=== PATIENT | female | born 1945 | race Caucasian/White ===

== ENCOUNTER → 2017-10-29 | Outpatient (CLI) | payer OTHER ==
[~2017-10-29] MED LIST: ATOR40TA71 PO; BUME1TAB12 PO; CARV12.511 PO; CHOL100046 PO; FERR325T22 PO; FOLI1TAB61 PO; GLIM4TAB3 PO; TIOT4MIS5 IH
== END ==
LOC: SHCH 15:08
PROVIDERS: ATTEND Internal Medicine Cardiovascular Disease
DX: I87.2 Venous insufficiency (chronic) (peripheral) (principal); K21.9 Gastro-esophageal reflux disease without esophagitis
CPT/HCPCS: 93970

== ENCOUNTER → 2017-11-30 | Outpatient (CLI) | payer OTHER | END | disposition home or self-care (01) | LOC: SHCH 09:18 | PROVIDERS: ATTEND Internal Medicine Cardiovascular Disease | DX: Z09 Encounter for follow-up examination after completed treatment for conditions other than malignant neoplasm (principal) | CPT/HCPCS: 93971 ==

== ENCOUNTER → 2018-07-20 | Outpatient (CLI) | payer OTHER | END | disposition home or self-care (01) | LOC: OIH 13:20 | PROVIDERS: ATTEND Family Medicine | DX: M25.472 Effusion, left ankle (principal); M25.475 Effusion, left foot; M85.872 Other specified disorders of bone density and structure, left ankle and foot | CPT/HCPCS: 73610; 73630 ==

== ENCOUNTER 2018-12-07 08:22 | Day surgery (SDC) | payer OTHER ==
[~2018-12-07] VITALS: Ht 172.7 cm; Wt 78.0 kg
[~2018-12-07 08:22] MED LIST changes: -FERR325T22 PO; +FERR325T29 PO; -FOLI1TAB61 PO; +FOLI1TAB85 PO; +PIOG15TA6 PO; +SODIUM CHLORIDE 0.9% 1000ML 1,000 ML IV ONE; +SULF1TAB3 PO; +TRAM50TA4 PO; +WARF6TAB23 PO
[2018-12-07 09:59] VITALS: BP 145/81
[2018-12-07] MEDS ORDERED: ENOX80DI8 SQ (10:23)
[2018-12-07 10:45] LABS: INR 1.06 (0.85-1.15); PROTHROMBIN TIME 11.1 SEC (9.6-11.6)
[2018-12-07] MEDS ORDERED: PROPOFOL 10 MG/ML 20ML VIAL IV ONE (11:49)
[2018-12-07 12:04] VITALS: BP 100/64
[2018-12-07 12:07] VITALS: BP 85/58
[2018-12-07 12:12] VITALS: BP 109/62
[2018-12-07 12:19] VITALS: BP 113/66
== END 2018-12-07 12:44 | disposition home or self-care (01) ==
LOC: ENDO 08:22 → DAH 08:22 → ENDO 12:44
PROVIDERS: ATTEND Internal Medicine
DX: K63.5 Polyp of colon (principal); D12.4 Benign neoplasm of descending colon; D12.3 Benign neoplasm of transverse colon; D12.5 Benign neoplasm of sigmoid colon; E66.9 Obesity, unspecified; E11.9 Type 2 diabetes mellitus without complications; I10 Essential (primary) hypertension; J44.9 Chronic obstructive pulmonary disease, unspecified; Z98.890 Other specified postprocedural states; Z96.659 Presence of unspecified artificial knee joint; K57.30 Diverticulosis of large intestine without perforation or abscess without bleeding; K64.0 First degree hemorrhoids; K21.9 Gastro-esophageal reflux disease without esophagitis; Z79.899 Other long term (current) drug therapy; Z86.010 Personal history of colon polyps; E78.2 Mixed hyperlipidemia; Z88.8 Allergy status to other drugs, medicaments and biological substances
CPT/HCPCS: 36415; 45385; 82948 ×2; 85610; 88305; 93005; A4606; J2704; J7030; 45380

== ENCOUNTER → 2019-06-06 | Outpatient (CLI) | payer OTHER ==
[~2019-06-06] MED LIST changes: -BUME1TAB12 PO; +BUME1TAB6 PO; -GLIM4TAB3 PO; +GLIM4TAB5 PO; -SODIUM CHLORIDE 0.9% 1000ML 1,000 ML IV ONE; -WARF6TAB23 PO
== END | disposition home or self-care (01) ==
LOC: OIH 08:08
PROVIDERS: ATTEND Family Medicine
DX: M16.12 Unilateral primary osteoarthritis, left hip (principal); M80.052D Age-related osteoporosis with current pathological fracture, left femur, subsequent encounter for fracture with routine healing; X58.XXXD Exposure to other specified factors, subsequent encounter
CPT/HCPCS: 73502; 73552

== ENCOUNTER 2020-06-07 07:20 | Day surgery (SDC) | payer OTHER ==
[~2020-06-07] VITALS: Ht 175.3 cm; Wt 79.8 kg
[2020-06-07] VITALS (8 sets, daily range): BP systolic 105–132; BP diastolic 60–70
[~2020-06-07 07:20] MED LIST changes: +DULA4.5P SQ; +GLIM4TAB36 PO; -GLIM4TAB5 PO; +SODIUM CHLORIDE 0.9% 1000ML 1,000 ML IV ONE; -TIOT4MIS5 IH
--- NOTE | 2020-06-07 08:25 | NUR ---
pt's blood sugar is 69, pt is asymptomatic, she states she is feeling fine. will notify evette adame
--- NOTE | 2020-06-07 08:28 | NUR ---
deep james pediatrics physician made aware of pt's blood sugar 69, pt is asymptomatic and he stated okay to proceed, no further orders at this time.
[2020-06-07 08:33] LABS: INR 1.08 (0.85-1.15); PROTHROMBIN TIME 11.6 SEC (9.6-11.6)
[2020-06-07] MEDS ORDERED: ALEN70TA69 PO (08:57)
[2020-06-07] MEDS ORDERED: WARF3TAB59 PO (08:57)
[2020-06-07] MEDS ORDERED: FOLI0.8T22 PO (08:57)
[2020-06-07] MEDS ORDERED: [UNRECOGNIZED DRUG - REMARK] SQ (08:57)
[2020-06-07] MEDS ORDERED: LEVO88TA7 PO (08:58)
[2020-06-07] MEDS ORDERED: PROPOFOL 10 MG/ML 20ML VIAL IV ONE (09:44)
--- NOTE | 2020-06-07 10:40 | NUR ---
DC PT DC HOME VIA WC,NO DISTRESS NOTED. PT DENIED ANY PAIN OR DISCOMFORTS. PT ACCOMPANIED BY SPOUSE
== END 2020-06-07 10:40 | disposition home or self-care (01) ==
LOC: ENDO 07:20 → DAH 07:20 → ENDO 10:40
PROVIDERS: ATTEND Internal Medicine Gastroenterology
DX: K59.00 Constipation, unspecified (principal); K63.5 Polyp of colon; K57.30 Diverticulosis of large intestine without perforation or abscess without bleeding; Z86.010 Personal history of colon polyps; I48.20 Chronic atrial fibrillation, unspecified; I10 Essential (primary) hypertension; E78.2 Mixed hyperlipidemia; Z79.01 Long term (current) use of anticoagulants; J44.9 Chronic obstructive pulmonary disease, unspecified; E66.9 Obesity, unspecified; E11.9 Type 2 diabetes mellitus without complications; K21.9 Gastro-esophageal reflux disease without esophagitis; Z88.1 Allergy status to other antibiotic agents; Z88.8 Allergy status to other drugs, medicaments and biological substances; Z79.4 Long term (current) use of insulin; Z79.899 Other long term (current) drug therapy; Z20.828 Contact with and (suspected) exposure to other viral communicable diseases
CPT/HCPCS: 36415 ×2; 45380; 82948 ×2; 85610; 93005; A4215; A4221; A4222; A4223; A4606; A4620; A4649; A4657 ×3; A4663; C9803; J2704; J7030; U0003

== ENCOUNTER → 2020-06-18 | Outpatient (CLI) | payer OTHER ==
[~2020-06-18] MED LIST changes: +ALEN70TA69 PO; +FOLI0.8T22 PO; +LEVO88TA7 PO; -SODIUM CHLORIDE 0.9% 1000ML 1,000 ML IV ONE; +WARF3TAB59 PO; +[UNRECOGNIZED DRUG - REMARK] SQ
== END | disposition home or self-care (01) ==
LOC: RAH 14:14
PROVIDERS: ATTEND Family Medicine
DX: Z12.31 Encounter for screening mammogram for malignant neoplasm of breast (principal)
CPT/HCPCS: 77067

== ENCOUNTER → 2020-07-10 | Outpatient (CLI) | payer OTHER | END | disposition home or self-care (01) | LOC: OIH 13:59 | PROVIDERS: ATTEND Family Medicine | DX: M51.36 Other intervertebral disc degeneration, lumbar region (principal); M54.5 Low back pain | CPT/HCPCS: 72100 ==

== ENCOUNTER 2021-09-02 09:28 | Emergency (ER) | payer OTHER ==
[~2021-09-02] VITALS: Ht 172.7 cm; Wt 74.8 kg
[~2021-09-02 09:28] MED LIST changes: -ALEN70TA69 PO; +ALEN70TA80 PO
[2021-09-02 10:27] LABS: BASOPHILS % (AUTO) 0.4 % (0.0-5.0); HEMATOCRIT 29.7 % (36-48); LYMPHOCYTES % (AUTO) 26.3 % (21.0-51.0); MEAN CORPUSCULAR HEMOGLOBIN 30.7 pg (27.0-33.0); MEAN CORPUSCULAR HGB CONC 31.6 g/dL (32.0-36.0); MEAN CORPUSCULAR VOLUME 97.1 fL (79-99); MONOCYTES % (AUTO) 8.5 % (3.0-13.0); NEUTROPHILS % (AUTO) 62.4 % (40.0-77.0); PLATELET COUNT (AUTO) 156 K/uL (130-400); RED BLOOD CELL COUNT(AUTO) 3.06 MIL/uL (4.00-5.50); RED CELL DISTRIBUTION WIDTH 13.3 % (11.0-15.5); WHITE BLOOD COUNT (AUTO) 4.6 K/uL (4.8-10.8)
[2021-09-02 10:47] LABS: BILIRUBIN,TOTAL 0.3 mg/dL (0.2-1.0); CREATININE 2.5 mg/dL (0.5-1.5); POTASSIUM 5.3 mmol/L (3.5-5.1); TOTAL PROTEIN, SERUM 7.3 g/dL (6.0-8.3)
[2021-09-02 14:57] LABS: APPEARANCE,URINE Clear (CLEAR); BILIRUBIN,URINE Negative (NEGATIVE); COLOR,URINE Yellow (YELLOW); GLUCOSE, URINE (UA) Negative (NEGATIVE); KETONES,URINE Negative (NEGATIVE); LEUKOCYTE ESTERASE ,URINE Small (NEGATIVE); NITRATE,URINE Negative (NEGATIVE); OCCULT BLOOD,URINE Negative (NEGATIVE); PH,URINE 5.5 (5.0-8.0); PROTEIN,URINE Negative (NEGATIVE); UROBILINOGEN,URINE 0.2 mg/dL (0.2-1.0)
[2021-09-02 15:12] LABS: BACTERIA,URINE Few /HPF (None Seen); RBC,URINE 0-1 /HPF (0-1)
[2021-09-02 15:13] LABS: SQUAMOUS EPITHELIAL CELL,UR Rare /HPF (0-2)
[2021-09-02] MEDS ORDERED: CARV12.580 PO (17:10)
[2021-09-02 17:11] VITALS: BP 138/80
== END 2021-09-02 17:30 | disposition home or self-care (01) ==
LOC: EDH 09:28
DX: R07.89 Other chest pain (principal); I25.10 Atherosclerotic heart disease of native coronary artery without angina pectoris; J44.9 Chronic obstructive pulmonary disease, unspecified; E11.9 Type 2 diabetes mellitus without complications; E78.00 Pure hypercholesterolemia, unspecified; I10 Essential (primary) hypertension; Z95.810 Presence of automatic (implantable) cardiac defibrillator; Z88.8 Allergy status to other drugs, medicaments and biological substances; Z88.1 Allergy status to other antibiotic agents; Z79.899 Other long term (current) drug therapy; Z79.01 Long term (current) use of anticoagulants; Z98.890 Other specified postprocedural states
CPT/HCPCS: 36415; 71045; 80053; 81001; 84484; 85025; 87077; 87088; 87186; 93005

== ENCOUNTER → 2021-09-30 | Outpatient (CLI) | payer OTHER ==
[~2021-09-30] MED LIST changes: +CARV12.580 PO; +REGADENOSON 0.4 MG/5 ML PF SYG IVP SCH
== END | disposition home or self-care (01) ==
LOC: SHCH 08:12
PROVIDERS: ATTEND Internal Medicine Cardiovascular Disease
DX: R94.39 Abnormal result of other cardiovascular function study (principal); I51.7 Cardiomegaly; Z95.0 Presence of cardiac pacemaker
CPT/HCPCS: 78452; 93017; 96374; A9500 ×2; J2785

== ENCOUNTER 2022-06-16 14:57 | Emergency (ER) | payer OTHER ==
[~2022-06-16 14:57] MED LIST changes: -REGADENOSON 0.4 MG/5 ML PF SYG IVP SCH
[2022-06-16 15:31] LABS: BASOPHILS % (AUTO) 0.6 % (0.0-5.0); EOSINOPHILS % (AUTO) 1.6 % (0.0-8.0); HEMATOCRIT 29.1 % (36-48); LYMPHOCYTES % (AUTO) 29.6 % (21.0-51.0); MEAN CORPUSCULAR HEMOGLOBIN 31.5 pg (27.0-33.0); MEAN CORPUSCULAR HGB CONC 32.3 g/dL (32.0-36.0); MEAN CORPUSCULAR VOLUME 97.7 fL (79-99); MONOCYTES % (AUTO) 9.5 % (3.0-13.0); NEUTROPHILS % (AUTO) 58.3 % (40.0-77.0); PLATELET COUNT (AUTO) 170 K/uL (130-400); RED BLOOD CELL COUNT(AUTO) 2.98 MIL/uL (4.00-5.50); RED CELL DISTRIBUTION WIDTH 13.9 % (11.0-15.5)
[2022-06-16 15:44] LABS: CREATININE 2.2 mg/dL (0.5-1.5)
[2022-06-16 15:48] LABS: ALBUMIN 3.7 g/dL (3.5-5.0); TOTAL PROTEIN, SERUM 6.9 g/dL (6.0-8.3)
[2022-06-16 16:39] VITALS: BP 154/47
[2022-06-16] MEDS ORDERED: 0.9%NACL 1000ML 1,000 ML IV ONE (17:30)
[2022-06-16] MEDS ORDERED: ACETAMINOPHEN 325 MG TAB PO ONE (17:30)
[2022-06-16] MEDS ORDERED: KETOROLAC 15MG/ML VIAL (15MG/ML) ONE (17:41)
[2022-06-16] MEDS ORDERED: ACET-66 PO (17:58)
[2022-06-16] MEDS ORDERED: KETOROLAC 15MG/ML VIAL (15MG/ML) IV ONE (18:00)
== END 2022-06-16 18:16 | disposition home or self-care (01) ==
LOC: EDH 14:57
DX: M94.0 Chondrocostal junction syndrome [Tietze] (principal); N64.4 Mastodynia; E86.0 Dehydration; I25.10 Atherosclerotic heart disease of native coronary artery without angina pectoris; E11.9 Type 2 diabetes mellitus without complications; E78.00 Pure hypercholesterolemia, unspecified; I10 Essential (primary) hypertension; E03.9 Hypothyroidism, unspecified; Z88.8 Allergy status to other drugs, medicaments and biological substances; Z88.1 Allergy status to other antibiotic agents; Z79.899 Other long term (current) drug therapy; Z79.01 Long term (current) use of anticoagulants; Z98.890 Other specified postprocedural states
CPT/HCPCS: 99285; 96374; 71045; 96361; 83735; 84484; 80053; 83880; 85025; 36415; 93005; J7030; J1885

== ENCOUNTER → 2023-01-26 | Outpatient (CLI) | payer OTHER ==
[~2023-01-26] MED LIST changes: +ACET-66 PO
== END | disposition home or self-care (01) ==
LOC: RAH 13:12
PROVIDERS: ATTEND Internal Medicine Cardiovascular Disease
DX: I67.82 Cerebral ischemia (principal); R51.9 Headache, unspecified
CPT/HCPCS: 70450

== ENCOUNTER → 2023-01-27 | Outpatient (CLI) | payer OTHER | END | disposition home or self-care (01) | LOC: SHCH 11:21 | PROVIDERS: ATTEND Internal Medicine Cardiovascular Disease | DX: I42.0 Dilated cardiomyopathy (principal); I08.1 Rheumatic disorders of both mitral and tricuspid valves; I11.9 Hypertensive heart disease without heart failure; E11.9 Type 2 diabetes mellitus without complications; E78.5 Hyperlipidemia, unspecified; Z95.2 Presence of prosthetic heart valve; Z95.810 Presence of automatic (implantable) cardiac defibrillator | CPT/HCPCS: 93306 ==

== ENCOUNTER 2023-09-28 05:58 | Day surgery (SDC) | payer OTHER ==
[2023-09-25 09:16] LABS: BASOPHILS # (AUTO) 0.02 K/uL (0.00-0.20); BASOPHILS % (AUTO) 0.5 % (0.0-5.0); EOSINOPHILS # (AUTO) 0.09 K/uL (0.00-0.70); HEMATOCRIT 31.9 % (36-48); IMMATURE GRANULOCYTE ABSOLUTE 0.01 K/uL (0-1); LYMPHOCYTES # (AUTO) 1.3 K/uL (1.0-4.8); LYMPHOCYTES % (AUTO) 28.3 % (21.0-51.0); MEAN CORPUSCULAR HEMOGLOBIN 31.3 pg (27.0-33.0); MEAN CORPUSCULAR HGB CONC 32.3 g/dL (32.0-36.0); MONOCYTES # (AUTO) 0.3 K/uL (0.1-1.0); MONOCYTES % (AUTO) 7.7 % (3.0-13.0); NEUTROPHILS # (AUTO) 2.7 K/uL (1.8-7.7); NEUTROPHILS % (AUTO) 61.3 % (40.0-77.0); PLATELET COUNT (AUTO) 163 K/uL (130-400); RED BLOOD CELL COUNT(AUTO) 3.29 MIL/uL (4.00-5.50); RED CELL DISTRIBUTION WIDTH 13.8 % (11.0-15.5); WHITE BLOOD COUNT (AUTO) 4.4 K/uL (4.8-10.8)
[2023-09-25 09:25] LABS: CREATININE 2.1 mg/dL (0.5-1.5); POTASSIUM 4.3 mmol/L (3.5-5.1)
[2023-09-25 09:43] LABS: INR 2.72 (0.85-1.15); PROTHROMBIN TIME 29.6 SEC (9.6-11.6)
[2023-09-25 09:45] VITALS: BP 116/64; PULSE 60; RESP 16
[~2023-09-28] VITALS: Ht 172.7 cm; Wt 74.5 kg
[2023-09-28] VITALS (9 sets, daily range): BP systolic 105–154; BP diastolic 47–70; PULSE 60–65; RESP 14–17
[~2023-09-28 05:58] MED LIST changes: -ACET-66 PO; +ALBU90AE2 IH; +BACL10TA PO; -CARV12.511 PO; -CARV12.580 PO; +CARV6.25 PO; +DULA1.5P SQ; -DULA4.5P SQ; -FOLI1TAB85 PO; +INSU3INS3 SQ; +LORA10TA7 PO; +MIRA50TA PO; -PIOG15TA6 PO; +WARF6TAB49 PO; +[UNRECOGNIZED DRUG - CODE] TP; -[UNRECOGNIZED DRUG - REMARK] SQ
[2023-09-28 06:36] LABS: INR 1.67 (0.85-1.15); PROTHROMBIN TIME 18.7 SEC (9.6-11.6)
[2023-09-28 06:37] LABS: PARTIAL THROMBOPLASTIN TIME 34.5 SEC (26.3-35.5)
[2023-09-28] MEDS ORDERED: LIDOCAINE HCL 1% MDV 50ML VIAL ONE (07:11)
[2023-09-28] MEDS ORDERED: CEFAZOLIN SODIUM 1 GM VIAL ONE (07:11)
[2023-09-28] MEDS ORDERED: MEPERIDINE-PF 25 MG/ML SYG ONE ×4 (07:12→08:22)
[2023-09-28] MEDS ORDERED: BUPIVACAINE/PF 0.25% 30ML VIAL IJ ONE (07:12)
[2023-09-28] MEDS: 0.9%NACL 1000ML 1,000 ML IV ONE (07:12)
[2023-09-28] MEDS ORDERED: MIDAZOLAM HCL 1 MG/ML 2ML VIAL ONE ×4 (07:12→08:22)
[2023-09-28] MEDS ORDERED: VANCOMYCIN 1G/250ML KIT 500 ML IV ONE (07:25)
[2023-09-28] MEDS ORDERED: BACITRACIN 1 EACH PACKET TP ONE (08:39)
[2023-09-28] MEDS ORDERED: DOXY100T2 PO (09:23)
[2023-09-28] MEDS ORDERED: ACETAMINOPHEN 500 MG TABLET PO PRN (09:30)
[2023-09-28] MEDS: ACETAMINOPHEN WITH CODEINE 1 TAB TAB PO PRN (10:59)
== END 2023-09-28 12:10 | disposition home or self-care (01) ==
LOC: DAH 05:58
PROVIDERS: ATTEND Internal Medicine Cardiovascular Disease
DX: Z45.02 Encounter for adjustment and management of automatic implantable cardiac defibrillator (principal); I44.2 Atrioventricular block, complete; I42.8 Other cardiomyopathies; E11.22 Type 2 diabetes mellitus with diabetic chronic kidney disease; N18.9 Chronic kidney disease, unspecified; I50.22 Chronic systolic (congestive) heart failure; I48.21 Permanent atrial fibrillation; E78.5 Hyperlipidemia, unspecified; Z90.710 Acquired absence of both cervix and uterus; Z98.890 Other specified postprocedural states; Z79.899 Other long term (current) drug therapy; Z82.49 Family history of ischemic heart disease and other diseases of the circulatory system; Z80.9 Family history of malignant neoplasm, unspecified; Z79.4 Long term (current) use of insulin
CPT/HCPCS: 80048; 85025; 85610 ×2; 85730 ×2; 36415 ×2; 93005; 33264; 82948 ×2; C1882; J7030; J0665; J2250 ×4; J3370; J2175 ×4; J3490; A4215; A6251; A4335; A4222; A4221; A4663; A4216; A6258; A4606; A4520; A4223 ×3; A4554; 99156; 99157; J0690

== ENCOUNTER → 2023-11-03 | Outpatient (CLI) | payer OTHER ==
[~2023-11-03] MED LIST changes: -SULF1TAB3 PO; -[UNRECOGNIZED DRUG - CODE] TP
[2023-11-03 16:33] LABS: CREATININE 2.1 mg/dL (0.5-1.0); POTASSIUM 4.4 mmol/L (3.5-5.1)
== END | disposition home or self-care (01) ==
LOC: LAB 14:00
PROVIDERS: ATTEND Internal Medicine Cardiovascular Disease
DX: I42.0 Dilated cardiomyopathy (principal)
CPT/HCPCS: 36415; 80048; 83735

== ENCOUNTER 2023-11-05 09:02 | Day surgery (SDC) | payer OTHER ==
[2023-10-30 10:42] LABS: BASOPHILS # (AUTO) 0.04 K/uL (0.00-0.20); BASOPHILS % (AUTO) 0.7 % (0.0-5.0); EOSINOPHILS # (AUTO) 0.12 K/uL (0.00-0.70); EOSINOPHILS % (AUTO) 2.1 % (0.0-8.0); HEMATOCRIT 35.4 % (36-48); IMMATURE GRANULOCYTE ABSOLUTE 0.02 K/uL (0-1); LYMPHOCYTES # (AUTO) 1.7 K/uL (1.0-4.8); LYMPHOCYTES % (AUTO) 30.3 % (21.0-51.0); MEAN CORPUSCULAR HEMOGLOBIN 31.5 pg (27.0-33.0); MEAN CORPUSCULAR HGB CONC 33.1 g/dL (32.0-36.0); MEAN CORPUSCULAR VOLUME 95.4 fL (79-99); MONOCYTES # (AUTO) 0.4 K/uL (0.1-1.0); MONOCYTES % (AUTO) 6.6 % (3.0-13.0); NEUTROPHILS # (AUTO) 3.4 K/uL (1.8-7.7); PLATELET COUNT (AUTO) 181 K/uL (130-400); RED BLOOD CELL COUNT(AUTO) 3.71 MIL/uL (4.00-5.50); RED CELL DISTRIBUTION WIDTH 14.2 % (11.0-15.5); WHITE BLOOD COUNT (AUTO) 5.7 K/uL (4.8-10.8)
[2023-10-30 10:48] LABS: APPEARANCE,URINE CLOUDY (CLEAR); BILIRUBIN,URINE NEGATIVE (NEGATIVE); COLOR,URINE COLORLESS (YELLOW); GLUCOSE, URINE (UA) NEGATIVE (NEGATIVE); KETONES,URINE NEGATIVE (NEGATIVE); LEUKOCYTE ESTERASE ,URINE 75 Leu/uL (NEGATIVE); NITRATE,URINE NEGATIVE (NEGATIVE); OCCULT BLOOD,URINE NEGATIVE (NEGATIVE); PROTEIN,URINE NEGATIVE (NEGATIVE); UROBILINOGEN,URINE 0.2 mg/dL (0.2-1.0)
[2023-10-30 10:49] VITALS: BP 169/71; PULSE 58; RESP 17
[2023-10-30 10:51] LABS: CREATININE 2.1 mg/dL (0.5-1.0); POTASSIUM 4.7 mmol/L (3.5-5.1)
[2023-10-30 10:53] LABS: INR 1.75 (0.85-1.15); PROTHROMBIN TIME 19.8 SEC (9.6-11.6)
[2023-10-30 10:54] LABS: PARTIAL THROMBOPLASTIN TIME 33.6 SEC (26.3-35.5)
[2023-10-30 10:54] LABS: ADD UA MICROSCOPIC YES
[2023-10-30 11:06] LABS: BACTERIA,URINE FEW /HPF (None Seen); MUCUS,URINE RARE LPF (None Seen); SQUAMOUS EPITHELIAL CELL,UR RARE /HPF (0-2)
[2023-11-05] VITALS (17 sets, daily range): BP systolic 118–165; BP diastolic 43–89; PULSE 59–96; RESP 12–16
[~2023-11-05] VITALS: Ht 172.7 cm; Wt 72.8 kg
[2023-11-05] MEDS: BOTULINUM TOXIN TYPE A 100 UNITS/VIAL INJ ONE ×2 (09:57→12:09)
[2023-11-05] MEDS ORDERED: BOTULINUM TOXIN TYPE A 100 UNITS/VIAL INJ SCH (10:00)
[2023-11-05 10:05] LABS: INR 0.98 (0.85-1.15); PROTHROMBIN TIME 11.6 SEC (9.6-11.6)
[2023-11-05 10:07] LABS: PARTIAL THROMBOPLASTIN TIME 22.8 SEC (26.3-35.5)
[2023-11-05] MEDS: LEVOFLOXACIN 500 MG/D5W 100 ML 100 ML ONE (11:35)
[2023-11-05] MEDS: 0.9%NACL 1000ML 1,000 ML IV ONE (11:35)
[2023-11-05] MEDS ORDERED: PROPOFOL 10 MG/ML 20ML VIAL IV ONE (11:43)
[2023-11-05] MEDS ORDERED: MIDAZOLAM HCL 1 MG/ML 2ML VIAL ONE (11:43)
[2023-11-05] MEDS ORDERED: FENTANYL CITRATE PF 50 MCG/1 ML 2ML VIAL ONE (11:43)
[2023-11-05] MEDS ORDERED: LIDOCAINE PF 100MG/5ML (2%) SYRINGE 5ML ONE (11:43)
== END 2023-11-05 14:10 | disposition home or self-care (01) ==
LOC: DAH 09:02
PROVIDERS: ATTEND Urology
DX: N39.46 Mixed incontinence (principal); N32.81 Overactive bladder; I25.10 Atherosclerotic heart disease of native coronary artery without angina pectoris; E11.22 Type 2 diabetes mellitus with diabetic chronic kidney disease; I13.0 Hypertensive heart and chronic kidney disease with heart failure and stage 1 through stage 4 chronic kidney disease, or unspecified chronic kidney disease; I50.9 Heart failure, unspecified; N18.9 Chronic kidney disease, unspecified; E66.01 Morbid (severe) obesity due to excess calories; M19.90 Unspecified osteoarthritis, unspecified site; Z79.01 Long term (current) use of anticoagulants; Z90.710 Acquired absence of both cervix and uterus; Z98.890 Other specified postprocedural states; Z68.24 Body mass index [BMI] 24.0-24.9, adult
CPT/HCPCS: 80048; 85025; 85610 ×2; 85730 ×2; 87077; 87088; 87186; 81001; 36415 ×2; 71045; 93005; 52287; 82948 ×2; A6260; A4663; C1758; J3010; J1956 ×2; J7030; J2001; J2250; J2704; J0585 ×2; A4358; A4215 ×2; A4223; A4222; A4221; A4600; J3490

== ENCOUNTER → 2024-06-07 | Outpatient (CLI) | payer OTHER ==
[~2024-06-07] MED LIST changes: -ALBU90AE2 IH; -BUME1TAB6 PO; +BUME2TAB5 PO; +CHOL-34 PO; -CHOL100046 PO; +FERR-72 PO; -FERR325T29 PO; -FOLI0.8T22 PO; +FOLI1TAB85 PO; +GLIM2TAB30 PO; -GLIM4TAB36 PO; +LEVO88CA4 PO; -LEVO88TA7 PO; -MIRA50TA PO; +SULF1TAB42 PO; -TRAM50TA4 PO
== END | disposition home or self-care (01) ==
LOC: SHCH 09:18
PROVIDERS: ATTEND Internal Medicine Cardiovascular Disease
DX: I87.2 Venous insufficiency (chronic) (peripheral) (principal); I87.1 Compression of vein; I73.9 Peripheral vascular disease, unspecified
CPT/HCPCS: 93925; 93970

== ENCOUNTER → 2024-07-23 | Outpatient (CLI) | payer OTHER | END | disposition home or self-care (01) | LOC: SHCH 10:43 | PROVIDERS: ATTEND Internal Medicine Cardiovascular Disease | DX: I10 Essential (primary) hypertension (principal); R06.09 Other forms of dyspnea | CPT/HCPCS: 93306 ==

== ENCOUNTER → 2024-08-04 | Outpatient (CLI) | payer OTHER ==
[2024-08-04 16:37] LABS: INR 2.37 (0.85-1.15); PROTHROMBIN TIME 24.4 SEC (9.6-11.6)
[2024-08-04 16:39] LABS: PARTIAL THROMBOPLASTIN TIME 36.8 SEC (26.3-35.5)
[2024-08-04 16:47] LABS: CREATININE 2.2 mg/dL (0.5-1.0); POTASSIUM 4.5 mmol/L (3.5-5.1)
== END | disposition home or self-care (01) ==
LOC: LAB 15:59
PROVIDERS: ATTEND Internal Medicine Cardiovascular Disease
DX: I42.0 Dilated cardiomyopathy (principal); Z79.01 Long term (current) use of anticoagulants
CPT/HCPCS: 36415; 80048; 83880; 85610; 85730